=== PATIENT | female | born 1980 | race Caucasian/White ===

== ENCOUNTER 2017-07-22 11:38 | Inpatient (IN) | payer OTHER ==
[~2017-07-22] VITALS: Ht 154.9 cm; Wt 73.0 kg
[2017-08-03] MEDS ORDERED: ATABEX EC CAPL1 EACH PO (14:03)
== END 2017-08-05 11:05 | DRG 775 ==
LOC: LDR 08-03 13:13 → OB/GYN 08-03 13:13 → SURH 08-20 12:30
PROC: 10E0XZZ Delivery of Products of Conception, External Approach (ICD-10-PCS; principal; 2017-08-03)
PROC: 0UQGXZZ Repair Vagina, External Approach (ICD-10-PCS; 2017-08-03)
PROC: 4A1HXCZ Monitoring of Products of Conception, Cardiac Rate, External Approach (ICD-10-PCS; 2017-08-03)
DX: O71.4 Obstetric high vaginal laceration alone (principal); Z37.0 Single live birth; Z3A.37 37 weeks gestation of pregnancy